=== PATIENT | male | born 1945 | race Caucasian/White ===

== ENCOUNTER 2019-03-28 12:00 | Observation (INO) ==
[2019-03-28] MEDS ORDERED: Bumetanide 1 MG/4 ML VIAL IVP ONE (12:39)
[2019-03-28 13:12] LABS: Basophils # 0.1 K/mcL (0.0-0.2); Basophils % 0.9 %; Eosinophils # 0.3 K/mcL (0.0-0.6); Eosinophils % 4.3 %; Hematocrit 40.6 % (37.5-50.1); Hemoglobin 13.5 g/dL (12.9-16.9); Immature Granulocytes % 1.3 % (0-4); Lymphocytes # 1.7 K/mcL (0.6-4.6); Lymphocytes % 24.8 %; Mean Corpuscular HGB Conc 33.3 g/dL (31.6-35.5); Mean Corpuscular Hemoglobin 29.3 pg (28.0-33.3); Mean Corpuscular Volume 88.1 fL (83.0-100.0); Mean Platelet Volume 10.6 fL (9.4-12.4); Monocytes # 0.8 K/mcL (0.0-1.3); Monocytes % 11.4 %; Neutrophils # 3.9 K/mcL (1.6-8.9); Platelet Count 277 K/mcL (140-400); Red Blood Count 4.61 M/mcL (4.19-5.50); Red Cell Distribution Width 13.4 % (11.5-14.5); Segmented Neutrophils % 57.3 %; White Blood Count 6.8 K/mcL (4.3-11.1)
[2019-03-28 13:19] LABS: Prothrombin Time 11.2 Seconds (9.4-12.1)
[2019-03-28 13:21] LABS: Activated Partial Thrombo Time 35.6 Seconds (26.0-36.0)
[2019-03-28 13:27] LABS: Alanine Aminotransferase 20 Units/L (7-52); Albumin 3.8 g/dL (3.5-5.7); Albumin/Globulin Ratio 1.5 (1.1-2.2); Alkaline Phosphatase 60 Units/L (34-104); Aspartate Amino Transferase 21 Units/L (13-39); BUN/Creatinine Ratio 27 (6-26); Bilirubin,Total 0.4 mg/dL (0.3-1.0); Blood Urea Nitrogen 32 mg/dL (8-23); Calcium 9.2 mg/dL (8.6-10.3); Carbon Dioxide 28 mEq/L (23-29); Chloride 101 mEq/L (98-107); Globulin 2.6 g/dL (2.4-3.5); Glucose 130 mg/dL (70-105); Osmolality,Calculated 291 (280-300); Potassium 4.3 mEq/L (3.5-5.1); Sodium 136 mEq/L (136-145); Total Protein 6.4 g/dL (6.4-8.9); eGFR For African Americans > 60 (> 60); eGFR For Non-African Americans 59 (> 60)
[2019-03-28 13:30] LABS: Troponin I < 0.03 ng/mL (< 0.04)
[2019-03-28 13:33] LABS: Bilirubin,Urine Negative (Negative); Blood,Urine Negative (Negative); Clarity,Urine Clear (Clear); Color,Urine Yellow (Yellow); Glucose,Urine (UA) Normal (Normal); Ketones,Urine Negative (Negative); Leukocyte Esterase,Urine Negative (Negative); Nitrite,Urine Negative (Negative); PH,Urine 5.5 pH Units (5.0-8.0); Protein,Urine Negative (Neg-Trace); Specific Gravity,Urine 1.015 (1.010-1.025); Urobilinogen,Urine Normal (Normal)
[2019-03-28] MEDS ORDERED: Naloxone 0.4 MG/ML INJ IVP PRN (14:35)
[2019-03-28] MEDS ORDERED: Benzonatate 100 MG CAPSULE PO PRN (17:50)
[2019-03-28] MEDS ORDERED: Albuterol 2.5 MG/3 ML NEBULIZER IH PRN (17:50)
[2019-03-28] MEDS: Bumetanide 1 MG/4 ML VIAL IVP SCH (17:55)
[2019-03-28] MEDS ORDERED: traZODone 50 MG TABLET PO SCH (21:00)
[2019-03-28] MEDS ORDERED: Furosemide 40 MG TABLET PO SCH (21:00)
[2019-03-29 02:11] LABS: BUN/Creatinine Ratio 27 (6-26); Blood Urea Nitrogen 33 mg/dL (8-23); Carbon Dioxide 28 mEq/L (23-29); Chloride 101 mEq/L (98-107); Glucose 136 mg/dL (70-105); Osmolality,Calculated 293 (280-300); Potassium 4.2 mEq/L (3.5-5.1); Sodium 137 mEq/L (136-145); eGFR For African Americans > 60 (> 60); eGFR For Non-African Americans 58 (> 60)
[2019-03-29 02:42] LABS: Basophils # 0.1 K/mcL (0.0-0.2); Eosinophils # 0.3 K/mcL (0.0-0.6); Eosinophils % 4.9 %; Hematocrit 40.2 % (37.5-50.1); Hemoglobin 13.4 g/dL (12.9-16.9); Lymphocytes # 1.4 K/mcL (0.6-4.6); Lymphocytes % 21.2 %; Mean Corpuscular HGB Conc 33.3 g/dL (31.6-35.5); Mean Corpuscular Hemoglobin 29.1 pg (28.0-33.3); Mean Corpuscular Volume 87.4 fL (83.0-100.0); Mean Platelet Volume 11.2 fL (9.4-12.4); Monocytes # 0.8 K/mcL (0.0-1.3); Monocytes % 11.2 %; Neutrophils # 4.1 K/mcL (1.6-8.9); Platelet Count 278 K/mcL (140-400); Red Cell Distribution Width 13.5 % (11.5-14.5); Segmented Neutrophils % 60.7 %; White Blood Count 6.8 K/mcL (4.3-11.1)
[2019-03-29] MEDS: Bumetanide 1 MG/4 ML VIAL IVP SCH (07:57)
[2019-03-29] MEDS ORDERED: Metoprolol XL (24 HR) Succ 25 MG TAB.ER.24H PO SCH (09:00)
[2019-03-29] MEDS ORDERED: Aspirin 81 MG TAB.CHEW PO SCH (09:00)
[2019-03-29 11:33] LABS: Vitamin B12 203 pg/mL (250-1100); Vitamin D 25 Hydroxy 16 ng/mL (30-80)
[2019-03-29 12:32] VITALS: BP 92/55
[2019-03-29] MEDS ORDERED: Cyanocobalamin (B-12) 1,000 MCG/ML VIAL IM ONE (14:19)
[2019-03-29] MEDS ORDERED: FLU Vac QV 19-20 (6Month+)/PF 0.5 ML SYRINGE IM ONE (14:45)
== END 2019-03-29 15:45 | disposition home or self-care (01) ==
LOC: INPPIK 12:00 → EMEROOPIK 12:00 → INPPIK 14:25
PROVIDERS: ADMIT Internal Medicine; ATTEND Internal Medicine

== ENCOUNTER 2020-06-29 16:30 | Inpatient (IN) ==
[2020-06-29] MEDS ORDERED: Dextrose Gel 15 GM/37.5 ML TUBE PO PRN ×2 (22:12)
[2020-06-29] MEDS ORDERED: D5% in Water 1,000 ML IVC PRN (22:12)
[2020-06-29] MEDS ORDERED: *HR* Dextrose 50 % in Water (Vial) 50 ML VIAL IVP PRN (22:12)
[2020-06-29] MEDS: Ipratropium/Albuterol Neb 3 ML IH SCH (23:11)
[2020-06-29] MEDS: Insulin LISPRO 300 UNITS/3 ML VIAL SUBQ SCH (23:12)
[2020-06-29] MEDS: Artificial Tears SOLN 15 ML BOTTLE BOTH EYES SCH (23:28)
[2020-06-29] MEDS: Torsemide 20 MG TABLET PO SCH (23:29)
[2020-06-29] MEDS: *HR* OxyCODONE/APAP 10/325 TABLET PO PRN (23:29)
[2020-06-29] MEDS: *HR* Metformin 500 MG TABLET PO SCH (23:29)
[2020-06-29] MEDS: Melatonin 3 MG TABLET PO SCH (23:29)
[2020-06-29] MEDS: polyethylene glycoL 3350 17 GM POWD.PACK PO PRN (23:30)
[2020-06-30 08:17] LABS: BUN/Creatinine Ratio 28 (6-26); Blood Urea Nitrogen 25 mg/dL (8-23); Calcium 7.9 mg/dL (8.6-10.3); Carbon Dioxide 24 mEq/L (23-29); Chloride 99 mEq/L (98-107); Glucose 157 mg/dL (70-105); Osmolality,Calculated 282 (280-300); Potassium 3.8 mEq/L (3.5-5.1); Sodium 132 mEq/L (136-145); eGFR For African Americans > 60 (> 60); eGFR For Non-African Americans > 60 (> 60)
[2020-06-30] MEDS ORDERED: Cyanocobalamin (B-12) 1,000 MCG TABLET PO SCH (09:00)
[2020-06-30 09:11] LABS: Basophils # 0.1 K/mcL (0.0-0.2); Basophils % 1.2 %; Eosinophils # 0.4 K/mcL (0.0-0.6); Eosinophils % 4.2 %; Hematocrit 33.3 % (37.5-50.1); Hemoglobin 11.4 g/dL (12.9-16.9); Immature Granulocytes % 5.5 % (0-4); Mean Corpuscular HGB Conc 34.2 g/dL (31.6-35.5); Mean Corpuscular Hemoglobin 28.2 pg (28.0-33.3); Mean Corpuscular Volume 82.4 fL (83.0-100.0); Mean Platelet Volume 11.4 fL (9.4-12.4); Neutrophils # 6.7 K/mcL (1.6-8.9); Platelet Count 303 K/mcL (140-400); Red Blood Count 4.04 M/mcL (4.19-5.50); Red Cell Distribution Width 13.9 % (11.5-14.5); Segmented Neutrophils % 69.1 %; White Blood Count 9.7 K/mcL (4.3-11.1)
[2020-06-30] MEDS: Artificial Tears SOLN 15 ML BOTTLE BOTH EYES SCH ×4 (09:15→20:45)
[2020-06-30] MEDS: *HR* Metformin 500 MG TABLET PO SCH ×2 (09:16→18:21)
[2020-06-30] MEDS: Cholecalciferol (D-3) 1,000 UNIT (25MCG) TABLET PO SCH (09:17)
[2020-06-30] MEDS: levoFLOXacin 750 MG TABLET PO SCH (09:17)
[2020-06-30] MEDS: Aspirin Enteric Coated 81 MG Tablet PO SCH (09:17)
[2020-06-30] MEDS: Metoprolol XL (24 HR) Succ 50 MG TAB.ER.24H PO SCH (09:17)
[2020-06-30] MEDS: Torsemide 20 MG TABLET PO SCH ×2 (09:18→20:31)
[2020-06-30] MEDS: Insulin LISPRO 300 UNITS/3 ML VIAL SUBQ SCH ×4 (09:29→20:44)
[2020-06-30] MEDS: Ipratropium/Albuterol Neb 3 ML IH SCH (10:50)
[2020-06-30 10:53] LABS: Platelet Estimate Normal (Normal)
[2020-06-30] MEDS: *HR* OxyCODONE/APAP 10/325 TABLET PO PRN ×2 (11:51→18:05)
[2020-06-30] MEDS ORDERED: Bisacodyl 10 MG RECTAL SUPPOSITORY RC PRN (17:30)
[2020-06-30] MEDS: Melatonin 3 MG TABLET PO SCH (20:31)
[2020-06-30] MEDS: Insulin DETEMIR 100 UNIT/ML X5UNITS SUBQ SCH (20:32)
[2020-06-30] MEDS: Morphine Sulfate 2 MG/ML SYRINGE IVP PRN (20:49)
[2020-06-30] MEDS: Sennosides/Docusate Sodium TABLET PO SCH (20:59)
[2020-06-30] MEDS ORDERED: NON-FORMULARY MEDICATION 1 EACH EACH (Alendronate Sodium [Fosamax] 70 MG) PO SCH (21:59)
[2020-07-01] MEDS: *HR* OxyCODONE/APAP 10/325 TABLET PO PRN ×4 (01:06→22:06)
[2020-07-01] MEDS: Morphine Sulfate 2 MG/ML SYRINGE IVP PRN ×2 (02:52→12:08)
[2020-07-01] MEDS: levoFLOXacin 750 MG TABLET PO SCH (07:40)
[2020-07-01] MEDS: Cholecalciferol (D-3) 1,000 UNIT (25MCG) TABLET PO SCH (07:40)
[2020-07-01] MEDS: Aspirin Enteric Coated 81 MG Tablet PO SCH (07:40)
[2020-07-01] MEDS: *HR* Metformin 500 MG TABLET PO SCH ×2 (07:42→15:34)
[2020-07-01] MEDS: Metoprolol XL (24 HR) Succ 50 MG TAB.ER.24H PO SCH (07:43)
[2020-07-01] MEDS: Artificial Tears SOLN 15 ML BOTTLE BOTH EYES SCH ×4 (07:45→22:03)
[2020-07-01] MEDS: Torsemide 20 MG TABLET PO SCH ×2 (07:46→22:06)
[2020-07-01] MEDS: Insulin LISPRO 300 UNITS/3 ML VIAL SUBQ SCH ×4 (07:51→21:50)
[2020-07-01] MEDS: Sennosides/Docusate Sodium TABLET PO SCH (07:53)
[2020-07-01] MEDS: Ipratropium/Albuterol Neb 3 ML IH SCH (10:07)
[2020-07-01] MEDS: Insulin DETEMIR 100 UNIT/ML X5UNITS SUBQ SCH (22:04)
[2020-07-01] MEDS: Melatonin 3 MG TABLET PO SCH (22:07)
[2020-07-02] MEDS: Aspirin Enteric Coated 81 MG Tablet PO SCH (07:52)
[2020-07-02] MEDS: Cholecalciferol (D-3) 1,000 UNIT (25MCG) TABLET PO SCH (07:52)
[2020-07-02] MEDS: *HR* OxyCODONE/APAP 10/325 TABLET PO PRN ×3 (07:52→21:00)
[2020-07-02] MEDS: Torsemide 20 MG TABLET PO SCH ×2 (07:52→21:00)
[2020-07-02] MEDS: *HR* Metformin 500 MG TABLET PO SCH ×2 (07:52→17:05)
[2020-07-02] MEDS: levoFLOXacin 750 MG TABLET PO SCH (07:53)
[2020-07-02] MEDS: Metoprolol XL (24 HR) Succ 50 MG TAB.ER.24H PO SCH (07:54)
[2020-07-02] MEDS: Insulin LISPRO 300 UNITS/3 ML VIAL SUBQ SCH ×4 (07:56→20:54)
[2020-07-02] MEDS: Artificial Tears SOLN 15 ML BOTTLE BOTH EYES SCH ×4 (07:59→21:02)
[2020-07-02] MEDS: Ipratropium/Albuterol Neb 3 ML IH SCH (08:53)
[2020-07-02] MEDS: Melatonin 3 MG TABLET PO SCH (21:00)
[2020-07-02] MEDS: Insulin DETEMIR 100 UNIT/ML X5UNITS SUBQ SCH (21:02)
[2020-07-03] MEDS: Ipratropium/Albuterol Neb 3 ML IH SCH (09:55)
[2020-07-03] MEDS: Metoprolol XL (24 HR) Succ 50 MG TAB.ER.24H PO SCH (09:58)
[2020-07-03] MEDS: *HR* OxyCODONE/APAP 10/325 TABLET PO PRN ×3 (10:00→22:47)
[2020-07-03] MEDS: Aspirin Enteric Coated 81 MG Tablet PO SCH (10:01)
[2020-07-03] MEDS: Cholecalciferol (D-3) 1,000 UNIT (25MCG) TABLET PO SCH (10:01)
[2020-07-03] MEDS: Artificial Tears SOLN 15 ML BOTTLE BOTH EYES SCH ×4 (10:02→22:47)
[2020-07-03] MEDS: *HR* Metformin 500 MG TABLET PO SCH ×2 (10:12→16:17)
[2020-07-03] MEDS: Insulin LISPRO 300 UNITS/3 ML VIAL SUBQ SCH ×4 (10:12→22:44)
[2020-07-03] MEDS: Torsemide 20 MG TABLET PO SCH ×2 (10:22→22:47)
[2020-07-03] MEDS: Insulin DETEMIR 100 UNIT/ML X5UNITS SUBQ SCH (22:46)
[2020-07-03] MEDS: Melatonin 3 MG TABLET PO SCH (22:47)
[2020-07-04] MEDS: *HR* Metformin 500 MG TABLET PO SCH ×2 (09:12→18:09)
[2020-07-04] MEDS: Cholecalciferol (D-3) 1,000 UNIT (25MCG) TABLET PO SCH (09:12)
[2020-07-04] MEDS: Aspirin Enteric Coated 81 MG Tablet PO SCH (09:12)
[2020-07-04] MEDS: Torsemide 20 MG TABLET PO SCH ×2 (09:12→21:58)
[2020-07-04] MEDS: Metoprolol XL (24 HR) Succ 50 MG TAB.ER.24H PO SCH (09:13)
[2020-07-04] MEDS: Artificial Tears SOLN 15 ML BOTTLE BOTH EYES SCH ×4 (09:13→21:57)
[2020-07-04] MEDS: Insulin LISPRO 300 UNITS/3 ML VIAL SUBQ SCH ×4 (09:14→21:54)
[2020-07-04] MEDS: Ipratropium/Albuterol Neb 3 ML IH SCH (09:35)
[2020-07-04] MEDS: Melatonin 3 MG TABLET PO SCH (21:58)
[2020-07-04] MEDS: Insulin DETEMIR 100 UNIT/ML X5UNITS SUBQ SCH (21:58)
[2020-07-05] MEDS: *HR* OxyCODONE/APAP 10/325 TABLET PO PRN ×2 (01:47→20:53)
[2020-07-05] MEDS: Insulin LISPRO 300 UNITS/3 ML VIAL SUBQ SCH ×4 (08:09→20:54)
[2020-07-05] MEDS: Torsemide 20 MG TABLET PO SCH ×2 (08:09→20:53)
[2020-07-05] MEDS: *HR* Metformin 500 MG TABLET PO SCH ×2 (08:10→18:42)
[2020-07-05] MEDS: Cholecalciferol (D-3) 1,000 UNIT (25MCG) TABLET PO SCH (08:10)
[2020-07-05] MEDS: Aspirin Enteric Coated 81 MG Tablet PO SCH (08:10)
[2020-07-05] MEDS: Metoprolol XL (24 HR) Succ 50 MG TAB.ER.24H PO SCH (08:11)
[2020-07-05] MEDS: Artificial Tears SOLN 15 ML BOTTLE BOTH EYES SCH ×4 (08:11→20:54)
[2020-07-05] MEDS: Ipratropium/Albuterol Neb 3 ML IH SCH (10:33)
[2020-07-05] MEDS: Melatonin 3 MG TABLET PO SCH (20:53)
[2020-07-05] MEDS: Insulin DETEMIR 100 UNIT/ML X5UNITS SUBQ SCH (20:54)
[2020-07-06] MEDS: *HR* Metformin 500 MG TABLET PO SCH ×2 (08:00→14:07)
[2020-07-06] MEDS: Cholecalciferol (D-3) 1,000 UNIT (25MCG) TABLET PO SCH (08:00)
[2020-07-06] MEDS: Insulin LISPRO 300 UNITS/3 ML VIAL SUBQ SCH ×4 (08:00→21:10)
[2020-07-06] MEDS: Torsemide 20 MG TABLET PO SCH ×2 (08:00→21:08)
[2020-07-06] MEDS: Metoprolol XL (24 HR) Succ 50 MG TAB.ER.24H PO SCH (08:00)
[2020-07-06] MEDS: Aspirin Enteric Coated 81 MG Tablet PO SCH (08:00)
[2020-07-06] MEDS: Artificial Tears SOLN 15 ML BOTTLE BOTH EYES SCH ×4 (08:01→21:09)
[2020-07-06] MEDS: Ipratropium/Albuterol Neb 3 ML IH SCH (09:23)
[2020-07-06 10:27] LABS: Basophils # 0.1 K/mcL (0.0-0.2); Basophils % 1.1 %; Eosinophils # 0.3 K/mcL (0.0-0.6); Eosinophils % 2.7 %; Hemoglobin 13.2 g/dL (12.9-16.9); Immature Granulocytes % 3.5 % (0-4); Lymphocytes # 1.4 K/mcL (0.6-4.6); Lymphocytes % 13.5 %; Mean Corpuscular HGB Conc 33.8 g/dL (31.6-35.5); Mean Corpuscular Hemoglobin 28.1 pg (28.0-33.3); Monocytes # 0.8 K/mcL (0.0-1.3); Monocytes % 8.2 %; Neutrophils # 7.1 K/mcL (1.6-8.9); Platelet Count 569 K/mcL (140-400)
[2020-07-06 10:40] LABS: Alanine Aminotransferase 135 Units/L (7-52); Albumin 3.4 g/dL (3.5-5.7); Albumin/Globulin Ratio 1.3 (1.1-2.2); Alkaline Phosphatase 108 Units/L (34-104); Aspartate Amino Transferase 59 Units/L (13-39); BUN/Creatinine Ratio 26 (6-26); Blood Urea Nitrogen 28 mg/dL (8-23); Calcium 8.9 mg/dL (8.6-10.3); Carbon Dioxide 24 mEq/L (23-29); Chloride 96 mEq/L (98-107); Globulin 2.7 g/dL (2.4-3.5); Glucose 147 mg/dL (70-105); Osmolality,Calculated 280 (280-300); Sodium 131 mEq/L (136-145); Total Protein 6.1 g/dL (6.4-8.9); eGFR For African Americans > 60 (> 60); eGFR For Non-African Americans > 60 (> 60)
[2020-07-06] MEDS: Nystatin POWDER 30 GM BOTTLE TP SCH ×2 (14:07→21:09)
[2020-07-06] MEDS: Melatonin 3 MG TABLET PO SCH (21:08)
[2020-07-06] MEDS: *HR* OxyCODONE/APAP 10/325 TABLET PO PRN (21:08)
[2020-07-06] MEDS: Insulin DETEMIR 100 UNIT/ML X5UNITS SUBQ SCH (21:09)
[2020-07-07] MEDS: Insulin LISPRO 300 UNITS/3 ML VIAL SUBQ SCH ×4 (08:58→20:19)
[2020-07-07] MEDS: Nystatin POWDER 30 GM BOTTLE TP SCH ×2 (08:59→20:55)
[2020-07-07] MEDS: *HR* OxyCODONE/APAP 10/325 TABLET PO PRN ×2 (09:06→20:54)
[2020-07-07] MEDS: Metoprolol XL (24 HR) Succ 50 MG TAB.ER.24H PO SCH (09:06)
[2020-07-07] MEDS: Torsemide 20 MG TABLET PO SCH ×2 (09:06→20:54)
[2020-07-07] MEDS: Aspirin Enteric Coated 81 MG Tablet PO SCH (09:08)
[2020-07-07] MEDS: Cholecalciferol (D-3) 1,000 UNIT (25MCG) TABLET PO SCH (09:08)
[2020-07-07] MEDS: *HR* Metformin 500 MG TABLET PO SCH ×2 (09:08→17:57)
[2020-07-07] MEDS: Artificial Tears SOLN 15 ML BOTTLE BOTH EYES SCH ×4 (09:10→20:55)
[2020-07-07] MEDS ORDERED: Ipratropium/Albuterol Neb 3 ML IH PRN (10:00)
[2020-07-07] MEDS: Insulin DETEMIR 100 UNIT/ML X5UNITS SUBQ SCH (20:54)
[2020-07-07] MEDS: Melatonin 3 MG TABLET PO SCH (20:54)
[2020-07-08] MEDS: *HR* OxyCODONE/APAP 10/325 TABLET PO PRN (06:11)
[2020-07-08] MEDS: *HR* Metformin 500 MG TABLET PO SCH ×2 (08:31→17:31)
[2020-07-08] MEDS: Aspirin Enteric Coated 81 MG Tablet PO SCH (08:32)
[2020-07-08] MEDS: Metoprolol XL (24 HR) Succ 50 MG TAB.ER.24H PO SCH (08:32)
[2020-07-08] MEDS: Torsemide 20 MG TABLET PO SCH ×2 (08:33→20:12)
[2020-07-08] MEDS: Nystatin POWDER 30 GM BOTTLE TP SCH ×2 (08:33→20:12)
[2020-07-08] MEDS: Cholecalciferol (D-3) 1,000 UNIT (25MCG) TABLET PO SCH (08:33)
[2020-07-08] MEDS: Insulin LISPRO 300 UNITS/3 ML VIAL SUBQ SCH ×4 (08:36→20:06)
[2020-07-08] MEDS: polyethylene glycoL 3350 17 GM POWD.PACK PO PRN (08:40)
[2020-07-08] MEDS: Artificial Tears SOLN 15 ML BOTTLE BOTH EYES SCH ×4 (09:03→20:12)
[2020-07-08] MEDS: Melatonin 3 MG TABLET PO SCH (20:11)
[2020-07-08] MEDS: Insulin DETEMIR 100 UNIT/ML X5UNITS SUBQ SCH (20:12)
[2020-07-09] MEDS: *HR* OxyCODONE/APAP 10/325 TABLET PO PRN ×2 (04:20→19:42)
[2020-07-09] MEDS: *HR* Metformin 500 MG TABLET PO SCH ×2 (08:14→16:22)
[2020-07-09] MEDS: Insulin LISPRO 300 UNITS/3 ML VIAL SUBQ SCH ×4 (08:14→19:51)
[2020-07-09] MEDS: Cholecalciferol (D-3) 1,000 UNIT (25MCG) TABLET PO SCH (08:14)
[2020-07-09] MEDS: Aspirin Enteric Coated 81 MG Tablet PO SCH (08:14)
[2020-07-09] MEDS: Torsemide 20 MG TABLET PO SCH ×2 (08:14→19:43)
[2020-07-09] MEDS: Metoprolol XL (24 HR) Succ 50 MG TAB.ER.24H PO SCH (08:14)
[2020-07-09] MEDS: Nystatin POWDER 30 GM BOTTLE TP SCH ×2 (08:15→19:43)
[2020-07-09] MEDS: Artificial Tears SOLN 15 ML BOTTLE BOTH EYES SCH ×4 (08:16→19:43)
[2020-07-09] MEDS: Insulin DETEMIR 100 UNIT/ML X5UNITS SUBQ SCH (19:43)
[2020-07-09] MEDS: Melatonin 3 MG TABLET PO SCH (19:43)
[2020-07-10] MEDS: *HR* OxyCODONE/APAP 10/325 TABLET PO PRN ×2 (02:57→20:06)
[2020-07-10] MEDS: *HR* Metformin 500 MG TABLET PO SCH ×2 (08:27→17:02)
[2020-07-10] MEDS: Cholecalciferol (D-3) 1,000 UNIT (25MCG) TABLET PO SCH (08:28)
[2020-07-10] MEDS: Metoprolol XL (24 HR) Succ 50 MG TAB.ER.24H PO SCH (08:28)
[2020-07-10] MEDS: Artificial Tears SOLN 15 ML BOTTLE BOTH EYES SCH ×4 (08:28→20:07)
[2020-07-10] MEDS: Aspirin Enteric Coated 81 MG Tablet PO SCH (08:28)
[2020-07-10] MEDS: Torsemide 20 MG TABLET PO SCH ×2 (08:28→20:06)
[2020-07-10] MEDS: Nystatin POWDER 30 GM BOTTLE TP SCH ×2 (08:29→20:09)
[2020-07-10] MEDS: Insulin LISPRO 300 UNITS/3 ML VIAL SUBQ SCH ×4 (08:32→20:07)
[2020-07-10] MEDS: Melatonin 3 MG TABLET PO SCH (20:06)
[2020-07-10] MEDS: Insulin DETEMIR 100 UNIT/ML X5UNITS SUBQ SCH (20:08)
[2020-07-11] MEDS: Nystatin POWDER 30 GM BOTTLE TP SCH ×2 (09:09→20:52)
[2020-07-11] MEDS: Aspirin Enteric Coated 81 MG Tablet PO SCH (09:09)
[2020-07-11] MEDS: Cholecalciferol (D-3) 1,000 UNIT (25MCG) TABLET PO SCH (09:10)
[2020-07-11] MEDS: *HR* Metformin 500 MG TABLET PO SCH ×2 (09:10→17:06)
[2020-07-11] MEDS: Metoprolol XL (24 HR) Succ 50 MG TAB.ER.24H PO SCH (09:10)
[2020-07-11] MEDS: Torsemide 20 MG TABLET PO SCH ×2 (09:11→20:52)
[2020-07-11] MEDS: Insulin LISPRO 300 UNITS/3 ML VIAL SUBQ SCH ×4 (09:12→20:09)
[2020-07-11] MEDS: Artificial Tears SOLN 15 ML BOTTLE BOTH EYES SCH ×4 (09:13→20:52)
[2020-07-11] MEDS ORDERED: Saline Nasal Spray 44 ML BOTTLE NS PRN (13:53)
[2020-07-11] MEDS: *HR* OxyCODONE/APAP 10/325 TABLET PO PRN (17:06)
[2020-07-11] MEDS: Insulin DETEMIR 100 UNIT/ML X5UNITS SUBQ SCH (20:52)
[2020-07-11] MEDS: Melatonin 3 MG TABLET PO SCH (20:52)
[2020-07-12] MEDS: Metoprolol XL (24 HR) Succ 50 MG TAB.ER.24H PO SCH (08:00)
[2020-07-12] MEDS: *HR* Metformin 500 MG TABLET PO SCH ×2 (08:01→18:10)
[2020-07-12] MEDS: Torsemide 20 MG TABLET PO SCH ×2 (08:01→20:52)
[2020-07-12] MEDS: Cholecalciferol (D-3) 1,000 UNIT (25MCG) TABLET PO SCH (08:01)
[2020-07-12] MEDS: Aspirin Enteric Coated 81 MG Tablet PO SCH (08:01)
[2020-07-12] MEDS: Nystatin POWDER 30 GM BOTTLE TP SCH ×2 (08:02→20:52)
[2020-07-12] MEDS: Insulin LISPRO 300 UNITS/3 ML VIAL SUBQ SCH ×4 (08:05→20:54)
[2020-07-12] MEDS: Artificial Tears SOLN 15 ML BOTTLE BOTH EYES SCH ×4 (08:14→20:52)
[2020-07-12] MEDS: Melatonin 3 MG TABLET PO SCH (20:51)
[2020-07-12] MEDS: Insulin DETEMIR 100 UNIT/ML X5UNITS SUBQ SCH (20:53)
[2020-07-13 06:41] LABS: Basophils # 0.1 K/mcL (0.0-0.2); Basophils % 0.7 %; Eosinophils # 0.2 K/mcL (0.0-0.6); Eosinophils % 1.6 %; Hematocrit 39.4 % (37.5-50.1); Hemoglobin 13.2 g/dL (12.9-16.9); Immature Granulocytes % 0.8 % (0-4); Lymphocytes # 1.1 K/mcL (0.6-4.6); Lymphocytes % 11.1 %; Mean Corpuscular HGB Conc 33.5 g/dL (31.6-35.5); Mean Corpuscular Hemoglobin 27.6 pg (28.0-33.3); Mean Corpuscular Volume 82.4 fL (83.0-100.0); Mean Platelet Volume 9.9 fL (9.4-12.4); Monocytes # 0.6 K/mcL (0.0-1.3); Monocytes % 6.3 %; Platelet Count 491 K/mcL (140-400); Red Blood Count 4.78 M/mcL (4.19-5.50); Red Cell Distribution Width 13.9 % (11.5-14.5); Segmented Neutrophils % 79.5 %; White Blood Count 10.1 K/mcL (4.3-11.1)
[2020-07-13 07:01] LABS: BUN/Creatinine Ratio 26 (6-26); Blood Urea Nitrogen 26 mg/dL (8-23); Calcium 8.4 mg/dL (8.6-10.3); Carbon Dioxide 26 mEq/L (23-29); Chloride 96 mEq/L (98-107); Glucose 122 mg/dL (70-105); Osmolality,Calculated 280 (280-300); Potassium 3.9 mEq/L (3.5-5.1); Sodium 132 mEq/L (136-145); eGFR For African Americans > 60 (> 60); eGFR For Non-African Americans > 60 (> 60)
[2020-07-13] MEDS: Insulin LISPRO 300 UNITS/3 ML VIAL SUBQ SCH ×4 (07:42→20:13)
[2020-07-13] MEDS: *HR* Metformin 500 MG TABLET PO SCH ×2 (08:23→16:34)
[2020-07-13] MEDS: Artificial Tears SOLN 15 ML BOTTLE BOTH EYES SCH ×4 (08:23→20:13)
[2020-07-13] MEDS: Torsemide 20 MG TABLET PO SCH ×2 (08:24→20:12)
[2020-07-13] MEDS: Metoprolol XL (24 HR) Succ 50 MG TAB.ER.24H PO SCH (08:24)
[2020-07-13] MEDS: Aspirin Enteric Coated 81 MG Tablet PO SCH (08:25)
[2020-07-13] MEDS: Nystatin POWDER 30 GM BOTTLE TP SCH ×2 (08:25→20:13)
[2020-07-13] MEDS: Cholecalciferol (D-3) 1,000 UNIT (25MCG) TABLET PO SCH (08:25)
[2020-07-13] MEDS: *HR* OxyCODONE/APAP 10/325 TABLET PO PRN (20:12)
[2020-07-13] MEDS: Melatonin 3 MG TABLET PO SCH (20:12)
[2020-07-13] MEDS: Insulin DETEMIR 100 UNIT/ML X5UNITS SUBQ SCH (20:30)
[2020-07-14] MEDS: Insulin LISPRO 300 UNITS/3 ML VIAL SUBQ SCH ×4 (09:20→20:53)
[2020-07-14] MEDS: Cholecalciferol (D-3) 1,000 UNIT (25MCG) TABLET PO SCH (09:33)
[2020-07-14] MEDS: Metoprolol XL (24 HR) Succ 25 MG TAB.ER.24H PO SCH (09:33)
[2020-07-14] MEDS: *HR* Metformin 500 MG TABLET PO SCH ×2 (09:33→16:53)
[2020-07-14] MEDS: Aspirin Enteric Coated 81 MG Tablet PO SCH (09:34)
[2020-07-14] MEDS: Nystatin POWDER 30 GM BOTTLE TP SCH ×2 (09:34→20:45)
[2020-07-14] MEDS: Artificial Tears SOLN 15 ML BOTTLE BOTH EYES SCH ×4 (09:35→20:45)
[2020-07-14] MEDS: Torsemide 20 MG TABLET PO SCH ×2 (09:46→20:45)
[2020-07-14] MEDS: *HR* OxyCODONE/APAP 10/325 TABLET PO PRN (09:46)
[2020-07-14] MEDS: Melatonin 3 MG TABLET PO SCH (20:45)
[2020-07-14] MEDS: Insulin DETEMIR 100 UNIT/ML X5UNITS SUBQ SCH (20:46)
[2020-07-15] MEDS: Insulin LISPRO 300 UNITS/3 ML VIAL SUBQ SCH ×4 (08:22→20:50)
[2020-07-15] MEDS: Metoprolol XL (24 HR) Succ 25 MG TAB.ER.24H PO SCH (08:28)
[2020-07-15] MEDS: *HR* Metformin 500 MG TABLET PO SCH ×2 (08:29→16:29)
[2020-07-15] MEDS: Aspirin Enteric Coated 81 MG Tablet PO SCH (08:29)
[2020-07-15] MEDS: Torsemide 20 MG TABLET PO SCH ×2 (08:29→20:41)
[2020-07-15] MEDS: Artificial Tears SOLN 15 ML BOTTLE BOTH EYES SCH ×4 (08:30→20:41)
[2020-07-15] MEDS: Cholecalciferol (D-3) 1,000 UNIT (25MCG) TABLET PO SCH (08:30)
[2020-07-15] MEDS: Nystatin POWDER 30 GM BOTTLE TP SCH ×2 (08:31→20:41)
[2020-07-15] MEDS: *HR* OxyCODONE/APAP 10/325 TABLET PO PRN ×2 (12:52→21:02)
[2020-07-15] MEDS: Melatonin 3 MG TABLET PO SCH (20:41)
[2020-07-15] MEDS: Insulin DETEMIR 100 UNIT/ML X5UNITS SUBQ SCH (20:42)
[2020-07-16] MEDS: Insulin LISPRO 300 UNITS/3 ML VIAL SUBQ SCH ×4 (08:11→20:01)
[2020-07-16] MEDS: Cholecalciferol (D-3) 1,000 UNIT (25MCG) TABLET PO SCH (08:20)
[2020-07-16] MEDS: Aspirin Enteric Coated 81 MG Tablet PO SCH (08:20)
[2020-07-16] MEDS: *HR* Metformin 500 MG TABLET PO SCH ×2 (08:20→16:59)
[2020-07-16] MEDS: Torsemide 20 MG TABLET PO SCH ×2 (08:21→20:08)
[2020-07-16] MEDS: Metoprolol XL (24 HR) Succ 25 MG TAB.ER.24H PO SCH (08:21)
[2020-07-16] MEDS: Nystatin POWDER 30 GM BOTTLE TP SCH ×2 (08:21→20:08)
[2020-07-16] MEDS: Artificial Tears SOLN 15 ML BOTTLE BOTH EYES SCH ×4 (08:21→20:08)
[2020-07-16] MEDS: *HR* OxyCODONE/APAP 10/325 TABLET PO PRN (20:07)
[2020-07-16] MEDS: Insulin DETEMIR 100 UNIT/ML X5UNITS SUBQ SCH (20:08)
[2020-07-16] MEDS: Melatonin 3 MG TABLET PO SCH (20:08)
[2020-07-17 08:30] LABS: Basophils # 0.1 K/mcL (0.0-0.2); Basophils % 1.3 %; Eosinophils # 0.4 K/mcL (0.0-0.6); Eosinophils % 5.6 %; Hematocrit 40.1 % (37.5-50.1); Hemoglobin 13.4 g/dL (12.9-16.9); Immature Granulocytes % 1.1 % (0-4); Lymphocytes # 1.3 K/mcL (0.6-4.6); Lymphocytes % 20.5 %; Mean Corpuscular HGB Conc 33.4 g/dL (31.6-35.5); Mean Corpuscular Hemoglobin 27.9 pg (28.0-33.3); Mean Corpuscular Volume 83.4 fL (83.0-100.0); Mean Platelet Volume 10.2 fL (9.4-12.4); Monocytes # 0.5 K/mcL (0.0-1.3); Monocytes % 8.3 %; Neutrophils # 3.9 K/mcL (1.6-8.9); Platelet Count 402 K/mcL (140-400); Red Blood Count 4.81 M/mcL (4.19-5.50); Red Cell Distribution Width 13.7 % (11.5-14.5); Segmented Neutrophils % 63.2 %; White Blood Count 6.2 K/mcL (4.3-11.1)
[2020-07-17] MEDS: Insulin LISPRO 300 UNITS/3 ML VIAL SUBQ SCH ×4 (08:31→20:31)
[2020-07-17] MEDS: *HR* Metformin 500 MG TABLET PO SCH ×2 (08:32→16:53)
[2020-07-17] MEDS: Cholecalciferol (D-3) 1,000 UNIT (25MCG) TABLET PO SCH (08:32)
[2020-07-17] MEDS: Aspirin Enteric Coated 81 MG Tablet PO SCH (08:32)
[2020-07-17] MEDS: Torsemide 20 MG TABLET PO SCH ×2 (08:32→16:54)
[2020-07-17] MEDS: Metoprolol XL (24 HR) Succ 25 MG TAB.ER.24H PO SCH (08:32)
[2020-07-17] MEDS: Nystatin POWDER 30 GM BOTTLE TP SCH ×2 (08:34→20:43)
[2020-07-17] MEDS: Artificial Tears SOLN 15 ML BOTTLE BOTH EYES SCH ×4 (08:38→20:42)
[2020-07-17 08:50] LABS: BUN/Creatinine Ratio 27 (6-26); Blood Urea Nitrogen 29 mg/dL (8-23); Carbon Dioxide 26 mEq/L (23-29); Chloride 98 mEq/L (98-107); Glucose 129 mg/dL (70-105); Osmolality,Calculated 286 (280-300); Potassium 3.9 mEq/L (3.5-5.1); Sodium 134 mEq/L (136-145); eGFR For African Americans > 60 (> 60); eGFR For Non-African Americans > 60 (> 60)
[2020-07-17 09:00] LABS: Calcium 8.7 mg/dL (8.6-10.3)
[2020-07-17] MEDS: Melatonin 3 MG TABLET PO SCH (20:42)
[2020-07-17] MEDS: Insulin DETEMIR 100 UNIT/ML X5UNITS SUBQ SCH (20:42)
[2020-07-18] MEDS: Cholecalciferol (D-3) 1,000 UNIT (25MCG) TABLET PO SCH (09:11)
[2020-07-18] MEDS: Metoprolol XL (24 HR) Succ 25 MG TAB.ER.24H PO SCH (09:12)
[2020-07-18] MEDS: *HR* Metformin 500 MG TABLET PO SCH ×2 (09:12→18:02)
[2020-07-18] MEDS: Torsemide 20 MG TABLET PO SCH ×2 (09:12→18:02)
[2020-07-18] MEDS: Insulin LISPRO 300 UNITS/3 ML VIAL SUBQ SCH ×4 (09:13→21:33)
[2020-07-18] MEDS: Aspirin Enteric Coated 81 MG Tablet PO SCH (09:13)
[2020-07-18] MEDS: Nystatin POWDER 30 GM BOTTLE TP SCH ×2 (13:14→21:40)
[2020-07-18] MEDS: Artificial Tears SOLN 15 ML BOTTLE BOTH EYES SCH ×4 (13:14→21:40)
[2020-07-18] MEDS: Melatonin 3 MG TABLET PO SCH (21:39)
[2020-07-18] MEDS: Insulin DETEMIR 100 UNIT/ML X5UNITS SUBQ SCH (21:39)
[2020-07-18] MEDS: *HR* OxyCODONE/APAP 10/325 TABLET PO PRN (21:39)
[2020-07-19] MEDS: Insulin LISPRO 300 UNITS/3 ML VIAL SUBQ SCH ×4 (08:11→20:16)
[2020-07-19] MEDS: Metoprolol XL (24 HR) Succ 25 MG TAB.ER.24H PO SCH (10:20)
[2020-07-19] MEDS: Aspirin Enteric Coated 81 MG Tablet PO SCH (10:20)
[2020-07-19] MEDS: *HR* Metformin 500 MG TABLET PO SCH ×2 (10:20→16:21)
[2020-07-19] MEDS: Cholecalciferol (D-3) 1,000 UNIT (25MCG) TABLET PO SCH (10:20)
[2020-07-19] MEDS: Torsemide 20 MG TABLET PO SCH ×2 (10:20→16:22)
[2020-07-19] MEDS: Nystatin POWDER 30 GM BOTTLE TP SCH ×2 (10:21→20:52)
[2020-07-19] MEDS: Artificial Tears SOLN 15 ML BOTTLE BOTH EYES SCH ×4 (10:21→20:51)
[2020-07-19] MEDS: Melatonin 3 MG TABLET PO SCH (20:51)
[2020-07-19] MEDS: *HR* OxyCODONE/APAP 10/325 TABLET PO PRN (20:51)
[2020-07-19] MEDS: Insulin DETEMIR 100 UNIT/ML X5UNITS SUBQ SCH (20:53)
[2020-07-20 07:12] VITALS: BP 122/73
[2020-07-20] MEDS: Artificial Tears SOLN 15 ML BOTTLE BOTH EYES SCH (08:25)
[2020-07-20] MEDS: Insulin LISPRO 300 UNITS/3 ML VIAL SUBQ SCH ×2 (08:26→12:25)
[2020-07-20] MEDS: Nystatin POWDER 30 GM BOTTLE TP SCH (08:26)
[2020-07-20] MEDS: Cholecalciferol (D-3) 1,000 UNIT (25MCG) TABLET PO SCH (08:27)
[2020-07-20] MEDS: *HR* Metformin 500 MG TABLET PO SCH (08:27)
[2020-07-20] MEDS: Metoprolol XL (24 HR) Succ 25 MG TAB.ER.24H PO SCH (08:27)
[2020-07-20] MEDS: Aspirin Enteric Coated 81 MG Tablet PO SCH (08:29)
[2020-07-20] MEDS: Torsemide 20 MG TABLET PO SCH (08:30)
== END 2020-07-20 14:27 | disposition home health service (06) | DRG 559 ==
LOC: INPPIK 21:44
PROVIDERS: ADMIT Family Medicine; ATTEND Family Medicine